=== PATIENT | female | born 2000 | race Caucasian/White ===

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

== ENCOUNTER 2022-06-04 16:16 | Emergency (ER) | payer MEDICAID ==
[~2022-06-04] VITALS: Ht 157.5 cm; Wt 60.0 kg
[2022-06-04 16:44] VITALS: BP 142/74
== END 2022-06-04 18:12 | disposition home or self-care (01) ==
LOC: ER 16:17
DX: F10.10 Alcohol abuse, uncomplicated (principal); Y90.9 Presence of alcohol in blood, level not specified
CPT/HCPCS: 99281

== ENCOUNTER 2023-10-04 20:30 | Emergency (ER) | payer MEDICAID ==
[~2023-10-04] VITALS: Ht 157.5 cm; Wt 63.7 kg
[2023-10-04 20:43] VITALS: TEMP 98
[2023-10-04] MEDS: dexamethasone sod phosphate 10mg/ml inj PO STA (22:46)
[2023-10-04] MEDS: ipratropium/albuterol 3ml nebule NEB STA (22:58)
[2023-10-04 23:08] VITALS: BP 145/82; PULSE 120; RESP 17; O2SAT 0
== END 2023-10-04 23:09 | disposition home or self-care (01) ==
LOC: ER 20:31
DX: J40 Bronchitis, not specified as acute or chronic (principal)
CPT/HCPCS: 71045; 99283; J1100

== ENCOUNTER 2023-10-05 05:37 | Emergency (ER) | payer MEDICAID ==
[~2023-10-05] VITALS: Ht 157.5 cm; Wt 63.9 kg
[2023-10-05 05:59] VITALS: BP 149/88; PULSE 116; RESP 18; TEMP 97.6; O2SAT 96
== END 2023-10-05 07:37 | disposition left against medical advice (07) ==
LOC: ER 05:38
DX: R06.02 Shortness of breath (principal); Z53.21 Procedure and treatment not carried out due to patient leaving prior to being seen by health care provider

== ENCOUNTER 2024-01-02 07:34 | Emergency (ER) | payer MEDICAID ==
[~2024-01-02] VITALS: Ht 157.5 cm; Wt 66.1 kg
[2024-01-02 07:41] VITALS: BP 142/97; PULSE 80; RESP 16; O2SAT 100
[2024-01-02 08:09] VITALS: TEMP 97.1
== END 2024-01-02 08:13 | disposition home or self-care (01) ==
LOC: ER 07:34
DX: Z02.89 Encounter for other administrative examinations (principal)
CPT/HCPCS: 99281